=== PATIENT | male | born 1965 | race Caucasian/White ===

== ENCOUNTER 2020-12-11 11:26 | Emergency (ER) | payer BC | END 2020-12-11 12:18 | disposition home or self-care (01) | LOC: NAV ERS 11:26 | DX: J20.9 Acute bronchitis, unspecified (principal); Z20.822 Contact with and (suspected) exposure to COVID-19; F17.220 Nicotine dependence, chewing tobacco, uncomplicated | CPT/HCPCS: 99283 ==

== ENCOUNTER 2020-12-12 02:48 | Emergency (ER) | payer BC, SELFPAY ==
[2020-12-12] MEDS ORDERED: Acetaminophen 500 MG TAB ONE (03:06)
[2020-12-12] MEDS ORDERED: Sodium Chloride 0.9% 2,000 ML ONE (03:45)
[2020-12-12] MEDS ORDERED: Sodium Chloride 0.9% 100 ML ONE (03:46)
[2020-12-12] MEDS ORDERED: Azithromycin 500 MG VIAL ONE (03:46)
[2020-12-12] MEDS ORDERED: Sodium Chloride 0.9% 250 ML 250 ML ONE (03:46)
[2020-12-12] MEDS ORDERED: cefTRIAXone\\ROCEPHIN 2 GM VIAL ONE (03:46)
[2020-12-12 04:05] LABS: #Lymphocytes 1.2 thou/uL (1.20-3.40); #Monocytes 0.4 thou/uL (0.11-0.59); #Neutrophils 1.9 thou/uL (1.40-6.50); %Basophils 0.5 % (0.0-1.0); %Eosinophils 0.1 % (0.0-10.0); %Lymphocytes 32.9 % (21.0-51.0); %Monocytes 11.3 % (0.0-10.0); %Neutrophils 55.2 % (42.0-75.0); Hemoglobin 14.2 g/dL (14.0-18.0); Mean Corpuscular HGB CONC 34.8 g/dL (32.0-36.0); Mean Corpuscular Hemoglobin 30.5 pg (27.0-31.0); Mean Corpuscular Volume 87.7 fL (78.0-98.0); Mean Platelet Volume 6.6 fL (7.4-10.4); Platelet Count 138 thou/uL (130-400); RBC Distribution Width 10.9 % (11.5-14.5); Red Blood Cell (RBC) Count 4.66 mill/uL (4.70-6.10); White Blood Cell (WBC) Count 3.5 thou/uL (4.8-10.8)
[2020-12-12 04:21] LABS: ALT (SGPT) 35 U/L (8-55); AST (SGOT) 58 U/L (5-34); Albumin 3.4 g/dL (3.5-5.0); Alkaline Phosphatase 55 U/L (40-110); Anion Gap 13 mmol/L (10-20); BUN (Urea Nitrogen) 10 mg/dL (8.4-25.7); Bilirubin, Total 0.5 mg/dL (0.2-1.2); CK (CPK) 1339 U/L (30-200); Calc. Creatinine Clearance 0 mL/min (70-130); Calcium 8.3 mg/dL (7.8-10.44); Carbon Dioxide 22 mmol/L (22-29); Chloride 95 mmol/L (98-107); Globulin 2.4 g/dL (2.4-3.5); Glucose 115 mg/dL (70-105); Potassium 4.1 mmol/L (3.5-5.1); Protein, Total 5.8 g/dL (6.0-8.3); Sodium 126 mmol/L (136-145)
[2020-12-12 05:02] LABS: SARS-CoV-2 NAA Rapid Test DETECTED (NotDetected)
== END 2020-12-12 05:38 | disposition short-term general hospital (02) ==
LOC: NAV ERS 02:48
DX: U07.1 COVID-19 (principal); J12.82 Pneumonia due to coronavirus disease 2019; R09.02 Hypoxemia; F17.290 Nicotine dependence, other tobacco product, uncomplicated
CPT/HCPCS: 0240U; 36415; 71045; 80053; 82550; 83605; 84484; 85025; 87040; 96365; 96375; J0456; J0696; J3490; J7050